=== PATIENT | female | born 1935 | race Caucasian/White ===

== ENCOUNTER 2016-12-18 13:52 | Emergency (ER) | payer MEDICARE, OTHER | END 2016-12-18 20:18 | disposition short-term general hospital (02) | LOC: ER 13:52 | DX: K75.4 Autoimmune hepatitis (principal); C34.90 Malignant neoplasm of unspecified part of unspecified bronchus or lung; I10 Essential (primary) hypertension; E11.9 Type 2 diabetes mellitus without complications; K21.9 Gastro-esophageal reflux disease without esophagitis; J44.9 Chronic obstructive pulmonary disease, unspecified; F17.210 Nicotine dependence, cigarettes, uncomplicated; Z79.899 Other long term (current) drug therapy; Z88.1 Allergy status to other antibiotic agents; Z90.710 Acquired absence of both cervix and uterus; Z91.041 Radiographic dye allergy status | CPT/HCPCS: 36415; 96361; 96374; 96375; 96376 ==